=== PATIENT | female | born 1995 | race Caucasian/White ===

== ENCOUNTER 2017-09-26 13:12 | Emergency (ER) | payer BC, MEDICAID ==
[2017-09-26 13:23] VITALS: BP 126/73
--- NOTE | 2017-09-26 13:27 | ERNOTE ---
Head Injury HPI - Narrative Date of Service: 09/26/17 - General Injury to: head Time Seen by Provider: 09/26/17 13:26 Source: patient, RN notes reviewed Exam Limitations: no limitations - Immun/Allergies/Home Medications Immunization: IMMUNIZATION HX Immunizations Up to Date Yes History of Influenza Vaccine No Hx Pneumococcal Vaccination No Allergies/Adverse Reactions: Allergies Allergy/AdvReac Type Severity Reaction Status Date / Time No Known Allergies Allergy Unverified 09/26/17 13:20 Home Medications: HOME MEDICATIONS Dextroamphetamine/Amphetamine [Adderall 15 mg Tablet] 15 mg PO DAILY 07/17/15 [ Last Taken Unknown] Etonogestrel/Ethinyl Estradiol [Nuvaring Vaginal Ring] 1 each VG 09/26/17 [Last Taken Unknown] - History of Present Illness Narrative: 22 year old female presents to the ED for a head injury that occurred early yesterday morning. She was drinking alcohol at the time. She reports falling and striking her head on the ground. She denies LOC. She reports pain in swelling in the left side of her head where she struck it. She has not taking anything for this. She denies any additional symptoms. Location Occurred: other Head Injury Location: parietal Method of Injury: Reports: fell Reason for Fall: Reports: unknown Loss of Consciousness: Reports: no loss of consciousness, remembers event Associated Symptoms: Denies: nausea, vomiting, other injuries Review of Systems - Review of Systems Constitutional: Absent: recent illness, fever EYE: Absent: eye pain, vision changes ENT: Present: nose congestion. Absent: ear pain, ear discharge, nasal drainage Respiratory: Absent: shortness of breath, cough Cardiology: Absent: chest pain, syncope Gastrointestinal/Abdominal: Absent: nausea, vomiting Genitourinary: Present: no symptoms reported Musculoskeletal: Absent: neck pain, joint pain Skin: Present: lumps. Absent: lesions, change in color Neurological: Present: headache. Absent: dizziness/light-headedness, weakness Endocrine: Present: no symptoms reported Hematologic/Lymphatic: Absent: easy bruising, easy bleeding Psych: Present: no symptoms reported - Patient's Past Medical History Patient History - Medical: ADHD Patient History - Cardiac/Respiratory: No pertinent hx Patient History - Cancer: No Hx of Cancer Patient History - Surgical Procedures: No surgical history Patient History - Other: None - Social History Living Situations: home Abuse History: No History of abuse Psych History: No pertinent hx Smoking Status: Current every day smoker Have you smoked in the past 12 months: Yes Do you dip or chew tobacco: No Patient requests Smoking Cessation Consult: No Initiate information on Smoking Cessation: No Alcohol Use: occasionally Drug Use: none - Immunizations Immunizations Up to Date: Yes Hx Pneumococcal Vaccination: No History of Influenza Vaccine: No Physical Exam - Physical Exam General Appearance: Present: wd/wn, alert, no apparent distress Head Exam: Present: swelling - mild, left parietal, tenderness - Left parietal, other - several small abrasions to face. Absent: ecchymosis, raccoon eyes Eye Exam: Normal inspection: bilateral, PERRL: bilateral, EOMI: bilateral Ears, Nose, Throat: Present: nasal congestion, sinus pain/drainage, normal pharynx. Absent: abnormal TM (R), abnormal TM (L) Neck: Present: normal inspection, nontender, supple, full range of motion Respiratory: Present: no respiratory distress, normal breath sounds, no accessory muscle use, lungs clear Cardiovascular/Chest: Present: regular rate, rhythm, no murmur Extremity Exam: Present: normal inspection, no edema Neurological Exam: Present: alert, oriented, normal mood/affect, no motor/ sensory deficits Skin Exam: Present: normal color, warm/dry ED Progress - Vital Signs Patient's Vital Signs:: I have reviewed the patient's vital signs. Vital Signs: Vital Signs 09/26/17 13:16 Temperature 36.7 C Pulse Rate 95 Respiratory 15 Rate Blood Pressure 126/73 O2 Sat by Pulse 100 Oximetry - Progress/Reassessment Chief Complaint: Fall Progress:: Unchanged Departure Clinical Impression: Closed head injury without concussion Qualifiers: Encounter type: initial encounter Qualified Code(s): S09.90XA - Unspecified injury of head, initial encounter - Departure Disposition: Home self-care Condition: Good Instructions: Head Injury, Adult, [id number] Additional Instructions: Ice to sore area Tylenol and/or ibuprofen for headache as directed on label Return for increasing headache, vomiting, or other concerns
== END 2017-09-26 13:40 | disposition home or self-care (01) ==
LOC: ER 13:12
DX: S09.90XA Unspecified injury of head, initial encounter (principal); F17.200 Nicotine dependence, unspecified, uncomplicated; W19.XXXA Unspecified fall, initial encounter
CPT/HCPCS: 99282